=== PATIENT | female | born 1955 | race Caucasian/White ===

== ENCOUNTER → 2017-03-07 | Outpatient (CLI) | payer BC | LOC: MC.RAD 13:40 | DX: Z12.31 Encounter for screening mammogram for malignant neoplasm of breast (principal) ==

== ENCOUNTER → 2018-03-30 | Outpatient (CLI) | payer BC | LOC: MC.RAD 08:00 | DX: Z12.31 Encounter for screening mammogram for malignant neoplasm of breast (principal) ==

== ENCOUNTER → 2019-04-02 | Outpatient (CLI) | payer BC | LOC: MC.RAD 08:14 | DX: Z12.31 Encounter for screening mammogram for malignant neoplasm of breast (principal) ==

== ENCOUNTER → 2020-04-11 | Outpatient (CLI) | payer BC | LOC: MC.RAD 08:14 | DX: Z12.31 Encounter for screening mammogram for malignant neoplasm of breast (principal) ==

== ENCOUNTER → 2021-05-28 | Outpatient (CLI) | payer BC | LOC: MC.RAD 07:59 | DX: Z12.31 Encounter for screening mammogram for malignant neoplasm of breast (principal) ==

== ENCOUNTER → 2022-06-16 | Outpatient (CLI) | payer OTHER | LOC: MC.RAD 08:08 | DX: Z12.31 Encounter for screening mammogram for malignant neoplasm of breast (principal) ==

== ENCOUNTER 2022-11-09 14:03 | Day surgery (SDC) | payer OTHER ==
[~2022-11-09] VITALS: Ht 162.6 cm; Wt 75.0 kg
--- NOTE | 2022-11-09 14:20 | NUR ---
1420 PATIENT ARRIVES FOR SCHEDULED SURGERY. PATIENT IS PLEASANT, ALERT AND ORIENTED. PATIENT HAS A STEADY GAIT. PATIENT IS ACCOMPANYING HER. PATIENT WEIGHT OBTAINED AND BROUGHT BACK TO ROOM 5. CONSENT FORMS REVIEWED AND SIGNED. ANESTHESIA CAME IN TO ROOM TO DO INTAKE. HISTORY REVIEWED WITH PATIENT. PATIENT CHANGED IN TO CLEAN GOWN. PO MEDICATION GIVEN WITH A SIP OF WATER. IV STARTED TO RIGHT HAND ON 1ST ATTEMPT WITH 20G IV. PATIENT IS READY FOR PROCEDURE. SIDE RAILS UP, BED LOCKED, CALL LIGHT WITHIN REACH.
[2022-11-09 14:50] VITALS: BP 173/75; PULSE 96; TEMP 98.1
[2022-11-09] MEDS ORDERED: DITROPAN 5MG TAB5 MG PO (15:14)
[2022-11-09] MEDS ORDERED: D3-5050000 IU PO (15:15)
[2022-11-09] MEDS ORDERED: CVS SPECTRAVIT1 EA15 PO (15:16)
[2022-11-09] MEDS ORDERED: PYRIDIUM 100MG100 MG PO (16:44)
[2022-11-09 17:55] VITALS: BP 154/75; PULSE 88; TEMP 97.9
[2022-11-09 18:03] VITALS: TEMP 97.9
[2022-11-09 18:10] VITALS: BP 158/75; PULSE 80
[2022-11-09 18:25] VITALS: BP 150/76; PULSE 80
[2022-11-09 18:40] VITALS: BP 146/76; PULSE 80
--- NOTE | 2022-11-09 18:50 | NUR ---
175 RETURNS TO ROOM 5 PER CART. AWAKE, ALERT. RESP CLEAR, UNLABORED. HOB ELEVATED 45 DEGREES. VITAL SIGNS OBTAINED. DENIES PAIN OR URINARY URGENCY. IN ROOM. CALL LIGHT AT SIDE. 1809 TOLERATES PO JUICE WITHOUT NAUSEA. 182 AWAKE, CONVERSES WITH . 184 DISCHARGE INSTRUCTIONS REVIEWED. PATIENT VERBALIZES UNDERSTANDING. COPY PROVIDED IN DISCHARGE FOLDER. 184 AMBULATES TO BATHROOM WITH STANDBY ASSIST. VOIDS WITHOUT DIFFICULTY. 1844 SITS ON EDGE OF BED. DRESSES SELF
== END 2022-11-09 18:52 | disposition home or self-care (01) ==
LOC: SDCO 14:03
DX: N20.1 Calculus of ureter (principal); Z96.0 Presence of urogenital implants; Z96.89 Presence of other specified functional implants
CPT/HCPCS: C1769; C2617; J0690; J1885; J2405; J2704; J3010; J7120

== ENCOUNTER → 2023-07-19 | Outpatient (CLI) | payer OTHER ==
[~2023-07-19] MED LIST: CVS SPECTRAVIT1 EA15 PO; D3-5050000 IU PO; DITROPAN 5MG TAB5 MG PO; PYRIDIUM 100MG100 MG PO
== END ==
LOC: CANSCHCLI → MC.RAD 08:01
DX: Z12.31 Encounter for screening mammogram for malignant neoplasm of breast (principal)

== ENCOUNTER → 2024-08-16 | Outpatient (CLI) | payer OTHER | LOC: MC.RAD 08:00 | DX: Z12.31 Encounter for screening mammogram for malignant neoplasm of breast (principal) ==